=== PATIENT | female | born 1975 | race Caucasian/White ===

== ENCOUNTER 2017-12-27 10:38 | Emergency (ER) | payer MEDICARE, MEDICAID ==
[~2017-12-27] VITALS: Ht 167.6 cm; Wt 70.5 kg
[2017-12-27 10:43] VITALS: BP 151/107
== END 2017-12-27 12:36 | disposition home or self-care (01) ==
LOC: ER 10:39
DX: S09.90XA Unspecified injury of head, initial encounter (principal); Z90.49 Acquired absence of other specified parts of digestive tract; Z98.890 Other specified postprocedural states; W22.8XXA Striking against or struck by other objects, initial encounter; Y93.89 Activity, other specified; Y92.89 Other specified places as the place of occurrence of the external cause; Y99.9 Unspecified external cause status
CPT/HCPCS: 70450; 72125; 82948; 99284

== ENCOUNTER 2018-07-18 10:59 | Emergency (ER) | payer MEDICARE, MEDICAID ==
[~2018-07-18] VITALS: Ht 170.2 cm; Wt 73.7 kg
[2018-07-18 11:03] VITALS: BP 132/86
[2018-07-18] MEDS ORDERED: TETanus/Pertussis (Acell)/Diphther VAC/PF (Tdap-Adult) 0.5ml syringe IM ONE (11:30)
== END 2018-07-18 12:09 | disposition home or self-care (01) ==
LOC: ER 10:59
DX: S92.421A Displaced fracture of distal phalanx of right great toe, initial encounter for closed fracture (principal); Z90.49 Acquired absence of other specified parts of digestive tract; W20.8XXA Other cause of strike by thrown, projected or falling object, initial encounter; Y93.89 Activity, other specified; Y92.89 Other specified places as the place of occurrence of the external cause; Y99.8 Other external cause status
CPT/HCPCS: 73630; 90471; 90715; 99284; A6449; L3260

== ENCOUNTER 2021-01-10 10:07 | Emergency (ER) | payer MEDICARE, MEDICAID ==
[~2021-01-10] VITALS: Ht 167.6 cm; Wt 74.4 kg
[2021-01-10] MEDS ORDERED: normal saline 1000ml 1,000 ML IV ONE ×2 (10:40→12:20)
[2021-01-10 11:12] LABS: URINE HCG NEGATIVE (NEG)
[2021-01-10 11:14] LABS: CLARITY,URINE CLEAR (Clear); COLOR,URINE STRAW (Yellow); GLUCOSE, URINE NEGATIVE (Neg); KETONES,URINE NEGATIVE (Neg); LEUKOCYTE ESTERASE ,URINE NEGATIVE (Neg); NITRITES, URINE NEGATIVE (Neg); OCCULT BLOOD,URINE NEGATIVE (Neg); PROTEIN,URINE NEGATIVE (Neg); UA COLLECTION TYPE CLN CATCH MIDSTREAM; UROBILINOGEN,URINE 0.2 E.U/dL (0.2-1.0)
[2021-01-10 11:22] LABS: BASOPHILS # (AUTO) 0.1 X10'3 (0-0.2); BASOPHILS % (AUTO) 1.3 % (0-1); EOSINOPHILS # (AUTO) 0.1 X10'3 (0-0.9); EOSINOPHILS % (AUTO) 1.1 % (0-6); HEMATOCRIT 38.4 % (35.0-45.0); HEMOGLOBIN 12.9 g/dl (12.0-16.0); LYMPHOCYTES % (AUTO) 13.5 % (21-51); MEAN CORPUSCULAR HEMOGLOBIN 31.9 PG (27.0-31.0); MEAN CORPUSCULAR HGB CONC 33.7 g/dL (33.0-36.5); MEAN CORPUSCULAR VOLUME 94.9 FL (78-98); MEAN PLATELET VOLUME 7.2 FL (7.4-10.4); MONOCYTES # (AUTO) 0.6 X10'3 (0-0.9); MONOCYTES % (AUTO) 8.6 % (2-12); NEUTROPHILS # (AUTO) 5.7 X10'3 (1.8-7.7); NEUTROPHILS % (AUTO) 75.5 % (42-75); PLATELET COUNT 418 X10'3 (140-440); RED BLOOD COUNT 4.05 X10'6 (4.20-5.60); RED CELL DISTRIBUTION WIDTH 13.1 % (11.5-14.5); WHITE BLOOD COUNT 7.5 X10'3 (4.5-11.0)
[2021-01-10 11:50] LABS: ALANINE AMINOTRANSFERASE 52 U/L (12-78); ALBUMIN 4.4 G/DL (3.4-5.0); ALBUMIN/GLOBULIN RATIO 1.1 (1.1-1.5); ALKALINE PHOSPHATASE 53 IU/L (46-116); ANION GAP 11 (8-16); ASPARTATE AMINO TRANSFERASE 51 U/L (10-37); BILIRUBIN,TOTAL 0.2 MG/DL (0.1-1.0); BLOOD UREA NITROGEN 9 MG/DL (7-18); BUN/CREATININE RATIO 10.5 (6.6-38.0); CALCIUM 9.7 MG/DL (8.5-10.1); CHLORIDE 91 MMOL/L (99-107); CREATININE 0.86 MG/DL (0.40-0.90); GLUCOSE 120 MG/DL (70-104); POTASSIUM 3.7 MMOL/L (3.5-5.1); SODIUM 129 MMOL/L (135-145); TOTAL CARBON DIOXIDE 27.4 MMOL/L (24-32); TOTAL PROTEIN 8.5 G/DL (6.4-8.2); eGFR 71 ML/MIN
[2021-01-10 12:45] LABS: GIANT PLATELET FEW; PLATELET ESTIMATE NORMAL
[2021-01-10 15:04] LABS: D-DIMER 2.35 MG/L FEU (0-0.50)
[2021-01-10] MEDS ORDERED: iohexol 350MG/ML 100ml bottle IV ONE (15:47)
[2021-01-10 15:48] VITALS: BP 145/98
[2021-01-10] MEDS ORDERED: DULO60CA45 PO (15:51)
[2021-01-10] MEDS ORDERED: MELO7.5T12 PO (15:51)
[2021-01-10] MEDS ORDERED: LAMO100T PO (15:51)
== END 2021-01-10 17:12 | disposition home or self-care (01) ==
LOC: ER 10:07
DX: I10 Essential (primary) hypertension (principal); R00.0 Tachycardia, unspecified; Z90.89 Acquired absence of other organs; Z98.890 Other specified postprocedural states; Z72.89 Other problems related to lifestyle; Z79.899 Other long term (current) drug therapy
CPT/HCPCS: 36415; 71045; 71275; 80053; 81003; 81025; 83605; 84145; 84443; 85008; 85025; 85379; 87040; 93005; 96360; 96361; 99285; J7030; Q9967

== ENCOUNTER 2021-12-09 08:39 | Emergency (ER) | payer MEDICARE, MEDICAID ==
[~2021-12-09] VITALS: Ht 167.6 cm; Wt 75.0 kg
[~2021-12-09 08:39] MED LIST: DULO60CA59 PO; LAMO100T PO; MELO7.5T12 PO
[2021-12-09 09:16] LABS: BASOPHILS # (AUTO) 0.1 X10'3 (0-0.2); BASOPHILS % (AUTO) 1.8 % (0-1); EOSINOPHILS % (AUTO) 0.5 % (0-6); HEMATOCRIT 39.1 % (35.0-45.0); HEMOGLOBIN 13.3 g/dl (12.0-16.0); LYMPHOCYTES # (AUTO) 0.7 X10'3 (1.1-4.8); MEAN CORPUSCULAR HEMOGLOBIN 32.9 PG (27.0-31.0); MEAN CORPUSCULAR VOLUME 96.8 FL (78-98); MONOCYTES # (AUTO) 0.4 X10'3 (0-0.9); MONOCYTES % (AUTO) 8.8 % (2-12); NEUTROPHILS # (AUTO) 3.4 X10'3 (1.8-7.7); NEUTROPHILS % (AUTO) 72.9 % (42-75); PLATELET COUNT 317 X10'3 (140-440); RED BLOOD COUNT 4.04 X10'6 (4.20-5.60); RED CELL DISTRIBUTION WIDTH 14.2 % (11.5-14.5); WHITE BLOOD COUNT 4.6 X10'3 (4.5-11.0)
[2021-12-09 10:12] LABS: ALANINE AMINOTRANSFERASE 91 U/L (12-78); ALBUMIN 4.6 G/DL (3.4-5.0); ALBUMIN/GLOBULIN RATIO 1.3 (1.1-1.5); ALKALINE PHOSPHATASE 65 IU/L (46-116); ANION GAP 9 (8-16); ASPARTATE AMINO TRANSFERASE 65 U/L (10-37); BILIRUBIN,TOTAL 0.8 MG/DL (0.1-1.0); BLOOD UREA NITROGEN 16 MG/DL (7-18); BUN/CREATININE RATIO 22.2 (6.6-38.0); CALCIUM 9.3 MG/DL (8.5-10.1); CHLORIDE 97 MMOL/L (99-107); CREATININE 0.72 MG/DL (0.40-0.90); GLUCOSE 114 MG/DL (70-104); POTASSIUM 4.5 MMOL/L (3.5-5.1); SODIUM 133 MMOL/L (135-145); TOTAL CARBON DIOXIDE 27.5 MMOL/L (24-32); TOTAL PROTEIN 8.1 G/DL (6.4-8.2); eGFR 86 ML/MIN
[2021-12-09 10:24] VITALS: BP 161/99
== END 2021-12-09 10:47 | disposition home or self-care (01) ==
LOC: ER 08:39
DX: I47.1 Supraventricular tachycardia (principal); I10 Essential (primary) hypertension; Z72.89 Other problems related to lifestyle; Z90.49 Acquired absence of other specified parts of digestive tract; Z98.891 History of uterine scar from previous surgery; Z79.890 Hormone replacement therapy
CPT/HCPCS: 36415; 71045; 80053; 82948; 83880; 84484; 85025; 93005; 99285

== ENCOUNTER 2023-02-06 13:25 | Emergency (ER) | payer MEDICARE, MEDICAID ==
[~2023-02-06] VITALS: Ht 165.1 cm; Wt 75.0 kg
[2023-02-06 13:54] VITALS: BP 209/127
--- NOTE | 2023-02-06 14:36 | NUR ---
Met with patient in regards to alcohol use and patient wanting resources on treatment options. I gave patient [facility] information to start that process, a list of in and out patient facilities, [facility] information and my card to call me with any questions.
[2023-02-06] MEDS ORDERED: GABA300C PO (14:59)
== END 2023-02-06 15:44 | disposition home or self-care (01) ==
LOC: ER 13:26
DX: F10.239 Alcohol dependence with withdrawal, unspecified (principal); F41.9 Anxiety disorder, unspecified; F32.A Depression, unspecified; Z90.49 Acquired absence of other specified parts of digestive tract; Z79.899 Other long term (current) drug therapy; Y90.9 Presence of alcohol in blood, level not specified
CPT/HCPCS: 99283